=== PATIENT | female | born 1940 | race African-American/Black ===

== ENCOUNTER 2025-07-12 17:30 | Emergency (ER) | payer OTHER ==
[~2025-07-12] VITALS: Ht 165.1 cm; Wt 73.0 kg
[2025-07-12 17:31] VITALS: BP 151/76; PULSE 65; RESP 18; TEMP 36.9; O2SAT 96
[2025-07-12] MEDS ORDERED: SODIUM CHLORIDE 0.9% 1,000 ML IV ONE (17:45)
== END 2025-07-12 17:50 | disposition left against medical advice (07) ==
LOC: ER 17:30
DX: R55 Syncope and collapse (principal); I10 Essential (primary) hypertension; G35.D Multiple sclerosis, unspecified
CPT/HCPCS: 99283; 93005; J7030